=== PATIENT | female | born 1965 | race African-American/Black ===

== ENCOUNTER 2017-12-12 02:23 | Emergency (ER) | payer MEDICARE, MEDICAID ==
[2012-03-01 00:06] VITALS: BMI 29.0
[2017-12-12 03:01] LABS: BASOPHILS 0.1 % (0-2); EOSINOPHILS 0.4 % (0-7); HEMATOCRIT 40.7 % (36.0-48.0); HEMOGLOBIN 13.5 g/dL (12-16); IMMATURE GRANULOCYTES 0.3 % (0-5); LYMPHOCYTES 24.2 % (15-50); MCH 29.3 pg (26.0-34.0); MCHC 33.2 g/dL (31.0-37.0); MCV 88.5 fL (80.0-100.0); MEAN PLATELET VOLUME 9.9 fL (7.4-10.4); MONOCYTES 5.1 % (2-11); NEUTROPHILS 69.9 % (40-80); PLATELET COUNT 248 10x3/uL (130-400); RDW 14.8 % (11.5-14.5); WBC 15.8 10x3/uL (4.8-10.8)
[2017-12-12 03:11] LABS: APPEARANCE HAZY (CLEAR); BILIRUBIN NEGATIVE (NEGATIVE); COLOR YELLOW (YELLOW); GLUCOSE NEGATIVE (NEGATIVE); KETONE NEGATIVE (NEGATIVE); NITRITE NEGATIVE (NEGATIVE); PROTEIN NEGATIVE (NEGATIVE); SPECIFIC GRAVITY 1.015 (1.005-1.020); UROBILINOGEN NORMAL (NORMAL)
[2017-12-12 03:12] LABS: BACTERIA NONE SEEN /hpf (NONE SEEN); EPITHELIAL CELLS NSEEN /hpf (0-5); WHITE CELLS - URINE >50 /hpf (0-5)
[2017-12-12 03:14] LABS: ALBUMIN 3.8 g/dL (3.4-5.0); ALKALINE PHOSPHATASE 47 U/L (46-116); ALT (SGPT) 17 U/L (10-68); AMYLASE - SERUM 104 U/L (25-115); BILIRUBIN - TOTAL 0.29 mg/dL (0.2-1.3); CALC OSMOLALITY 279 mosm/kg (275-300); CALCIUM 8.7 mg/dL (8.5-10.1); CHLORIDE - SERUM 103 mmol/L (98-107); CREATININE - SERUM 0.8 mg/dL (0.6-1.3); GLUCOSE 127 mg/dL (74-106); LIPASE 105 U/L (73-393); POTASSIUM - SERUM 3.5 mmol/L (3.5-5.1); PROTEIN - SERUM 8.9 g/dL (6.4-8.2); SODIUM 140 mmol/L (136-145); UREA NITROGEN 9 mg/dL (7-18); eGFR NON AFRICAN AMERICAN 81 mL/min (90-120)
== END 2017-12-12 06:25 | disposition home or self-care (01) ==
LOC: D.ER 02:23
PROVIDERS: Family Medicine
DX: N39.0 Urinary tract infection, site not specified (principal); N10 Acute pyelonephritis; I10 Essential (primary) hypertension

== ENCOUNTER 2018-05-17 07:10 | Outpatient (CLI) | payer MEDICARE, MEDICAID ==
[2012-03-01 00:06] VITALS: Wt 84.8 kg
[2018-05-16 15:19] LABS: HEMATOCRIT 39.4 % (36.0-48.0); HEMOGLOBIN 13.2 g/dL (12-16); MCH 29.4 pg (26.0-34.0); MCHC 33.5 g/dL (31.0-37.0); MCV 87.8 fL (80.0-100.0); MEAN PLATELET VOLUME 10.2 fL (7.4-10.4); RBC 4.49 10x6/uL (4.00-5.40); RDW 14.7 % (11.5-14.5)
[2018-05-16 15:42] LABS: APPEARANCE CLEAR (CLEAR); BILIRUBIN NEGATIVE (NEGATIVE); COLOR YELLOW (YELLOW); GLUCOSE NEGATIVE (NEGATIVE); KETONE NEGATIVE (NEGATIVE); NITRITE POSITIVE (NEGATIVE); PROTEIN NEGATIVE (NEGATIVE); UROBILINOGEN NORMAL (NORMAL)
[2018-05-16 15:44] LABS: BACTERIA MANY /hpf (NONE SEEN); EPITHELIAL CELLS 0-5 /hpf (0-5); MUCUS >1+ /lpf (NONE SEEN); RED CELLS - URINE 0-5 /hpf (0-5)
[~2018-05-17 07:10] MED LIST: ASMANEX0.24 GM INH; CELEXA20 MG PO; NORVASC5 MG PO
== END 2018-05-17 09:42 | disposition home or self-care (01) ==
LOC: D.OPS 07:10 → D.PAN 08:00 → EDSTATUS 08:15 → D.OPS 08:15 → D.PAN 08:15 → D.OPS 08:55 → D.PAN 09:00 → D.OPS 09:10 → D.PAN 09:25 → D.OPS 09:42
PROVIDERS: Anesthesiology; Urology
DX: N81.10 Cystocele, unspecified (principal); N39.0 Urinary tract infection, site not specified; Z53.8 Procedure and treatment not carried out for other reasons

== ENCOUNTER → 2018-08-22 18:52 | Outpatient (CLI) | payer MEDICARE, MEDICAID ==
[2012-03-01 00:06] VITALS: BMI 29.0
== END | disposition home or self-care (01) ==
LOC: D.LABREF 18:52
DX: D72.829 Elevated white blood cell count, unspecified (principal)

== ENCOUNTER 2018-09-20 07:50 | Day surgery (SDC) | payer MEDICARE, MEDICAID ==
[2018-09-19 16:36] LABS: HEMATOCRIT 38.5 % (36.0-48.0); HEMOGLOBIN 12.7 g/dL (12-16); MCV 87.9 fL (80.0-100.0); MEAN PLATELET VOLUME 10.4 fL (7.4-10.4); RBC 4.38 10x6/uL (4.00-5.40); RDW 14.7 % (11.5-14.5); WBC 8.9 10x3/uL (4.8-10.8)
[~2018-09-20] VITALS: Ht 162.6 cm; Wt 84.8 kg
[~2018-09-20 07:50] MED LIST changes: +ULTRAM50 MG PO
[2018-09-20 08:12] VITALS: BP 136/82; Ht 162.6 cm; Wt 84.8 kg
--- NOTE | 2018-09-20 14:15 | NUR ---
REC'D FROM . NO FAMILY AT BEDSIDE. DR ASHRAF HAD TOLD NURSE TO SEND PT HOME WITH VAGINAL PACKING AND NICHOLS CATHETER AND MAKE APPT. TOMORROW AT HIS OFFICE FOR REMOVAL OF BOTH. NO NICHOLS IN PLACE WHEN RECEIVED FROM . NURSE RELATED THE PT EITHER DIDN'T HAVE A NICHOLS OR SURGERY REMOVED IT AFTER HER PROCEDURE.
--- NOTE | 2018-09-20 14:25 | NUR ---
NICHOLS 16 FR INSERTED USING STERILE TECHNIQUE BY Cory KRAFT RN. IMMEDIATE RETURN OF CLEAR YELOW URINE. CRANBERRY/APPLE JUICE BROUGHT TO PT.
--- NOTE | 2018-09-20 14:45 | NUR ---
FL TRAY SERVED TO PT. ANOTHER JUICE BROUGHT TO PT.
--- NOTE | 2018-09-20 15:15 | NUR ---
TOLERATED DIET. ZEYNEP LEE BROUGHT TO PT. WAITING FOR RIDE TO GET HERE.
--- NOTE | 2018-09-20 16:15 | NUR ---
IV DC'D WITH CATHETER INTACT. NUMBER OBTAINED FROM PT TO CALL SON REGARDING RIDE HOME.
--- NOTE | 2018-09-20 16:30 | NUR ---
SON HERE. DC INST. GIVEN TO PT AND FAMILY ALONG WITH RX. VERBALIZED UNDERSTANDING. ASSISTED PT TO GET DRESSED.
--- NOTE | 2018-09-20 16:38 | OP ---
PATIENT NAME: SALAS ADDISON MEDICAL RECORD: [id number] :69 LOCATION:D.OPS ADMISSION DATE: SURGEON: YOHAN ASHRAF MD DATE OF OPERATION: 09/20/2018 SURGEON: Yohan Ashraf MD ANESTHESIA: General anesthesia by Zeyad Rooney CRNA DIAGNOSES: [place]-Walker grade III midline cystocele, female stress urinary incontinence. PROCEDURES: Cystoscopy, pubovaginal sling with [employer] Obtryx graft, and cystocele repair with [employer] Uphold graft. FINDINGS: On cystoscopy, single ureteral orifices bilaterally. No bladder tumors were seen and there was some bladder inflammation noted. No bladder injury was seen. BLOOD LOSS: 200 mL. SPECIMENS: None. CLINICAL HISTORY: This is a 52-year-old female who has stress urinary incontinence and grade III cystocele on the [place]-Walker scale. I had seen her quite some time ago, and in the summer of 2017, she had been scheduled for a pubovaginal sling and cystocele repair with mesh. However, at that time, she canceled the surgery as she said she had no other adults in the house to take care of her after surgery. She still has her uterus. After it was explained to her that this is outpatient surgery and that she would not have to be in the hospital and that she would be mobile after surgery, she agreed to have the surgery done. The risks of mesh were explained to the patient including risk of infection, graft erosion into the bladder or the urethra, graft extrusion into the vaginal space, chronic pelvic pain, and dyspareunia as well as bleeding. She does wish to proceed with mesh. SHE IS ALLERGIC TO ASPIRIN, HYDROCODONE, AND AMBIEN. She was given Ancef on-call to the OR. DESCRIPTION OF PROCEDURE: The patient was given induction of general anesthesia. She was then placed in the dorsal lithotomy position and prepped and draped. She was also placed into Trendelenburg position. A 16-Armenian Potter catheter was placed into the bladder and put to bag drainage. A weighted speculum was used to hold the posterior vaginal wall down. A #2 nylon suture was used to retract the labia majora laterally. These #2 stay sutures were anchored to the medial thighs. The cystocele filled up most of the vaginal introitus. Hydrodissection was performed using Pitressin solution. Twenty units of Pitressin was dissolved in 100 mL of injectable saline. This solution was injected into the anterior vaginal wall for hydrodissection. A transverse incision was made at the level of the junction between the urethra to the bladder neck. The Metzenbaum scissors were then used to dissect the pubocervical fascia. We perforated the fascia near the arcus tendineus fasciae pelvis on both sides laterally. We then dissected with Metzenbaums until we reached the sacrospinous ligaments in the presacral space bilaterally. Anteriorly, we also cleared the retropubic space and cleared off the obturator membrane on each side. At this point, the [employer] Obtryx graft was placed. This was placed through the sacrospinous ligaments bilaterally. The OPERATIVE REPORT [id number] SALAS ADDISON A landmark is at the ischial spine and then to move 1 cm medial to the ischial spine to avoid hitting the internal pudendal artery and the pudendal nerves. Once this was done and we had a strong hold on the sacrospinous ligament on each side, the posterior graft arms were then pulled gently to get the graft into position. In order to prevent the graft from curling up, the proximal and most distal extent of the graft was tacked using a 3-0 Monocryl suture. The proximal end was tacked to the region of the cervical neck. This suture was placed using the Capio refuse driver. The other end of the suture was then placed through the most proximal portion of the graft. Once this was tied down, that portion of the graft was tacked down. Near the bladder neck, the 3-0 Monocryl was again used to tack the distal portion of the graft to the bladder neck region. We then landmarked for the pubovaginal sling. The landmark is inferior to the insertion of the adductor longus muscle on the descending pubic ramus. The garcia were made using a marking pen and then stab incisions were made. The helical trocars were placed to go deep to the descending pubic ramus and then to perforate the obturator membrane at the anterior apex of the obturator fossa. The tip of the needle then entered into the vaginal dissection space. Here, they were intercepted by the ends of the Obtryx graft which were hooked to the tips of the trocar needles. The trocar needles were then withdrawn, resulting in transobturator passage of the pubovaginal sling. Once all grafts were in place, the Potter catheter balloon was deflated and the Potter catheter was removed. Cystoscopy was performed. No bladder injury was seen. The bladder was filled through the cystoscope. The tab on the midportion of the pubovaginal sling was placed under the midportion of the urethra. The tab was then removed by cutting the suture that held it in place. We applied suprapubic pressure manually. This resulted in leakage of irrigation fluid from the bladder. Eventually, graft tension was increased on the pubovaginal sling until further suprapubic pressure did not result in any leakage of fluid per the urethra. At this point, our graft tension was set. The clear plastic sheath material on either end of the graft arms was removed by cutting it stay suture. The graft arms were cut where they exited through the groin incisions. The groin incisions were then closed with 4-0 Monocryl simple interrupted sutures. Similarly, the sheath material on each of the graft arms of the Uphold graft was removed. The graft arms were cut short using Metzenbaum scissors. The wound was irrigated out with saline. A running 4-0 Monocryl was used to close the vaginal transverse incision. It should be noted that the patient had fairly significant oozing throughout the procedure. She does have a very highly vascular perivesical tissue. We placed vaginal packing which was Kerlix infiltrated with estrogen cream. The stay sutures through the labia majora were removed. The Potter catheter was placed back in and put to bag drainage. The patient will go home today with the Potter catheter and the vaginal packing. She will see me in the office tomorrow to have the packing and the catheter removed for a voiding trial. TRANSINT:[id number] Voice Confirmation ID: [id number] DOCUMENT ID: [id number] OPERATIVE REPORT [id number] SALAS ADDISON, YOHAN Gomez MD at 1638 CC: [id number] DICTATION DATE: 09/20/18 1326 PIPE SETTER: 09/20/[address] [facility] [address] [place] [address]
--- NOTE | 2018-09-20 16:40 | NUR ---
DC'D HOME WITH FAMILY VIA PRIVATE VEHICLE. TAKEN TO VEHICLE VIA WC. STABLE AT TIME OF DC.
== END 2018-09-20 16:40 | disposition home or self-care (01) ==
LOC: D.OPS 07:50 → D.PAN 09:15 → D.OPS 09:15
PROVIDERS: Anesthesiology
DX: N81.11 Cystocele, midline (principal); N39.3 Stress incontinence (female) (male); Z01.812 Encounter for preprocedural laboratory examination

== ENCOUNTER 2019-03-25 21:30 | Emergency (ER) | payer MEDICARE, MEDICAID ==
[~2019-03-25] VITALS: Ht 162.6 cm; Wt 81.8 kg
[2019-03-25 21:39] VITALS: Ht 162.6 cm; Wt 81.8 kg
[2019-03-25] MEDS ORDERED: GABAPENTIN100 MG (21:40)
[2019-03-25] MEDS ORDERED: ZANAFLEX4 MG (21:40)
[2019-03-25] MEDS ORDERED: ALBUTEROL SULF8.5 GM (21:41)
[2019-03-25 21:53] LABS: HEMATOCRIT 38.8 % (36.0-48.0); HEMOGLOBIN 12.8 g/dL (12-16); MCH 28.8 pg (26.0-34.0); MCV 87.2 fL (80.0-100.0); MEAN PLATELET VOLUME 10.1 fL (7.4-10.4); PLATELET COUNT 263 10x3/uL (130-400); RBC 4.45 10x6/uL (4.00-5.40); RDW 16.6 % (11.5-14.5); WBC 9.1 10x3/uL (4.8-10.8)
[2019-03-25 22:00] LABS: APTT 28.4 SECONDS (22.8-39.4); INR 0.95 (0.85-1.17); PROTIME 12.2 SECONDS (11.6-15.0)
[2019-03-25 22:08] LABS: ALBUMIN 3.3 g/dL (3.4-5.0); ALKALINE PHOSPHATASE 55 U/L (46-116); ALT (SGPT) 17 U/L (10-68); BILIRUBIN - TOTAL 0.19 mg/dL (0.2-1.3); CALC OSMOLALITY 277 mosm/kg (275-300); CALCIUM 8.7 mg/dL (8.5-10.1); CARBON DIOXIDE 27.2 mmol/L (21.0-32.0); CHLORIDE - SERUM 104 mmol/L (98-107); CREATININE - SERUM 0.8 mg/dL (0.6-1.3); GLUCOSE 101 mg/dL (74-106); POTASSIUM - SERUM 3.5 mmol/L (3.5-5.1); PROTEIN - SERUM 7.7 g/dL (6.4-8.2); SODIUM 140 mmol/L (136-145); UREA NITROGEN 9 mg/dL (7-18); eGFR NON AFRICAN AMERICAN 80 mL/min (90-120)
[2019-03-25 22:19] LABS: CKMB 0.1 U/L (0.0-3.6); CREATINE KINASE 44 UL (21-215); MAGNESIUM - SERUM 1.6 mg/dL (1.8-2.4)
[2019-03-25 22:23] LABS: TROPONIN-I < 0.017 ng/mL (0.000-0.060)
[2019-03-25 22:45] LABS: EOSINOPHILS 4 % (0-7); LYMPHOCYTES 58 % (15-50); MONOCYTES 1 % (2-11); NEUTROPHILS 37 % (40-80); PLATELET ESTIMATE NORMAL
[2019-03-26] MEDS ORDERED: TESSALON PERLE100 MG PO (00:29)
[2019-03-26] MEDS ORDERED: AUGMENTIN 875-11 TAB PO (00:29)
[2019-03-26] MEDS ORDERED: LISINOPRIL5 MG PO (00:29)
[2019-03-26 00:47] VITALS: BP 161/85
== END 2019-03-26 00:47 | disposition home or self-care (01) ==
LOC: D.ER 21:30
PROVIDERS: Family Medicine
DX: J40 Bronchitis, not specified as acute or chronic (principal); I10 Essential (primary) hypertension

== ENCOUNTER 2019-09-25 17:32 | Emergency (ER) | payer OTHER, MEDICARE, MEDICAID ==
[~2019-09-25] VITALS: Ht 162.6 cm; Wt 86.4 kg
[~2019-09-25 17:32] MED LIST changes: +ALBUTEROL SULF8.5 GM; +AUGMENTIN 875-11 TAB PO; +GABAPENTIN100 MG; +LISINOPRIL5 MG PO; +TESSALON PERLE100 MG PO; +ZANAFLEX4 MG
[2019-09-25 18:25] VITALS: Ht 162.6 cm; Wt 86.4 kg
[2019-09-25] MEDS ORDERED: DILAUDID2 MG PO (20:59)
[2019-09-25 22:10] VITALS: BP 150/83
== END 2019-09-25 22:10 | disposition home or self-care (01) ==
LOC: D.ER 17:32
DX: M79.18 Myalgia, other site (principal); V89.2XXA Person injured in unspecified motor-vehicle accident, traffic, initial encounter; Y93.9 Activity, unspecified; Y92.9 Unspecified place or not applicable; I10 Essential (primary) hypertension; J45.909 Unspecified asthma, uncomplicated; E07.9 Disorder of thyroid, unspecified